=== PATIENT | male | born 2000 | race African-American/Black ===

== ENCOUNTER 2019-12-22 19:05 | Emergency (ER) | payer MEDICAID, OTHER ==
[2019-12-25 14:15] LABS: SARS-CoV-2 by NAA Indeterminate (NotDetected)
[2019-12-25 14:16] LABS: SARS-CoV-2 MS2 Positive; SARS-CoV-2 N Gene Positive; SARS-CoV-2 S Gene Negative; SARS-CoV-2 orf1ab Negative
== END 2019-12-22 19:43 | disposition home or self-care (01) ==
LOC: NAV ERS 19:05
DX: R05 Cough (principal); R11.2 Nausea with vomiting, unspecified; Z20.828 Contact with and (suspected) exposure to other viral communicable diseases
CPT/HCPCS: 87635; 99284; U0003

== ENCOUNTER 2021-05-22 19:44 | Emergency (ER) | payer MEDICAID, SELFPAY ==
[2021-05-23 17:57] LABS: SARS-CoV-2 PCR by NAA DETECTED (NotDetected)
== END 2021-05-22 20:20 | disposition home or self-care (01) ==
LOC: NAV ERS 19:44
DX: U07.1 COVID-19 (principal); F17.210 Nicotine dependence, cigarettes, uncomplicated
CPT/HCPCS: 99284; U0003; U0005

== ENCOUNTER 2021-08-18 10:18 | Emergency (ER) | payer BC, OTHER, SELFPAY ==
[2021-08-18 11:59] LABS: #Basophils 0.1 thou/uL (0.0-0.2); #Eosinphils 0.3 thou/uL (0.0-0.7); #Lymphocytes 1.8 thou/uL (1.20-3.40); #Monocytes 0.6 thou/uL (0.11-0.59); #Neutrophils 2.4 thou/uL (1.40-6.50); %Basophils 1.5 % (0.0-1.0); %Eosinophils 5.5 % (0.0-10.0); %Lymphocytes 34.7 % (21.0-51.0); %Monocytes 11.5 % (0.0-10.0); %Neutrophils 46.8 % (42.0-75.0); Hemoglobin 13.2 g/dL (14.0-18.0); Mean Corpuscular Hemoglobin 30.6 pg (27.0-31.0); Mean Corpuscular Volume 95.5 fL (78.0-98.0); Mean Platelet Volume 7.1 fL (7.4-10.4); Platelet Count 212 thou/uL (130-400); RBC Distribution Width 10.2 % (11.5-14.5); White Blood Cell (WBC) Count 5.2 thou/uL (4.8-10.8)
[2021-08-18] MEDS ORDERED: Ibuprofen 200 MG TAB ONE (12:01)
[2021-08-18 12:15] LABS: ALT (SGPT) 10 U/L (8-55); AST (SGOT) 14 U/L (5-34); Albumin 4.1 g/dL (3.5-5.0); Alkaline Phosphatase 43 U/L (40-110); Anion Gap 12 mmol/L (10-20); BUN (Urea Nitrogen) 15 mg/dL (8.9-20.6); Bilirubin, Total 0.6 mg/dL (0.2-1.2); Calc. Creatinine Clearance 0 mL/min (70-130); Calcium 9.1 mg/dL (7.8-10.44); Carbon Dioxide 26 mmol/L (22-29); Chloride 107 mmol/L (98-107); Globulin 2.8 g/dL (2.4-3.5); Glucose 76 mg/dL (70-105); Lipase 88 U/L (8-78); Protein, Total 6.9 g/dL (6.0-8.3); Sodium 141 mmol/L (136-145)
== END 2021-08-18 12:55 | disposition left against medical advice (07) ==
LOC: NAV ERS 10:18
DX: R07.9 Chest pain, unspecified (principal); F17.210 Nicotine dependence, cigarettes, uncomplicated
CPT/HCPCS: 71045; 80053; 83690; 84484; 85025; 93005

== ENCOUNTER 2021-09-18 18:44 | Emergency (ER) | payer BC | END 2021-09-18 19:20 | disposition home or self-care (01) | LOC: NAV ERS 18:44 | DX: J06.9 Acute upper respiratory infection, unspecified (principal); F17.210 Nicotine dependence, cigarettes, uncomplicated | CPT/HCPCS: 99283 ==

== ENCOUNTER 2022-06-05 19:07 | Emergency (ER) | payer BC, SELFPAY ==
[2022-06-05] MEDS ORDERED: cefTRIAXone\\ROCEPHIN 250 MG VIAL ONE (19:43)
[2022-06-05] MEDS ORDERED: Ibuprofen 200 MG TAB ONE (19:43)
[2022-06-05] MEDS ORDERED: Azithromycin 250 MG TAB ONE (19:53)
[2022-06-07 00:07] LABS: Chlam.trachomatis by PCR,Urine Not Detected (NotDetected)
== END 2022-06-05 20:05 | disposition home or self-care (01) ==
LOC: NAV ERS 19:07
DX: S39.012A Strain of muscle, fascia and tendon of lower back, initial encounter (principal); N34.2 Other urethritis; N50.9 Disorder of male genital organs, unspecified; X50.0XXA Overexertion from strenuous movement or load, initial encounter
CPT/HCPCS: 87491; 87591; 96372; 99283; J0696

== ENCOUNTER 2025-01-20 07:37 | Emergency (ER) | payer SELFPAY | END 2025-01-20 08:24 | disposition home or self-care (01) | LOC: NAV ERS 07:37 | DX: K52.9 Noninfective gastroenteritis and colitis, unspecified (principal); F17.210 Nicotine dependence, cigarettes, uncomplicated | CPT/HCPCS: 99283 ==